=== PATIENT | male | born 1990 | race Caucasian/White ===

== ENCOUNTER 2023-11-12 11:32 | Outpatient (REF) | payer MEDICARE, MEDICAID, SELFPAY ==
[2023-11-12 14:55] LABS: MANUAL DIFF FLAG NO
[2023-11-12 15:10] LABS: Basophils Percent Auto 0.6 % (0-2); Eosinophils Absolute Auto 0.1 X10*3/uL (0.0-0.4); Eosinophils Percent Auto 0.8 % (0-4); Hematocrit 42.2 % (42.0-52.0); Hemoglobin 14.3 g/dl (14.0-18.0); Imm Gran Abs Auto 0.03 X10*3/uL (0.00-0.03); Imm Gran Pct Auto 0.5 % (0.0-0.4); Lymphocytes Absolute Auto 1.6 X10*3/uL (1.2-4.9); Lymphocytes Percent Auto 23.7 % (20-40); Mean Corpuscular HGB Conc 33.9 g/dl (31.0-36.0); Mean Corpuscular Hemoglobin 29.7 pg (27.0-33.0); Mean Corpuscular Volume 87.6 fL (80.0-98.0); Monocytes Absolute Auto 0.6 X10*3/uL (0.1-1.2); Monocytes Percent Auto 8.3 % (2-11); Neutrophils Absolute Auto 4.4 x10*3/uL (2.0-8.3); Neutrophils Percent Auto 66.1 % (45-73); Platelet Count 218 X10*3/uL (160-400); Red Blood Count 4.82 X10*6/uL (4.60-5.80); Red Cell Distribution Width 12.7 % (11.0-16.0); White Blood Count 6.6 X10*3/uL (4.8-10.8)
[2023-11-12 15:28] LABS: Alanine Aminotransferase 38 U/L (0-40); Alkaline Phosphatase 72 U/L (39-117); Anion Gap 12 (12-20); Aspartate Amino Transferase 21 U/L (5-37); Bilirubin Total 0.4 mg/dL (0.0-1.0); Blood Urea Nitrogen 9 mg/dL (9-16); Calcium 8.9 mg/dL (8.4-10.2); Carbon Dioxide 26 mmol/L (22-29); Chloride 103 mmol/L (96-108); Estimated Glomerular Filt Rate > 60; Glucose Fasting 93 mg/dL (60-99); Potassium 3.6 mmol/L (3.3-5.1); Sodium 137 mmol/L (135-145); Total Protein 7.4 g/dL (6.5-8.0)
[2023-11-13 08:25] LABS: HIV AB/AG Nonreactive (Nonreactive); HIV Num 1 0.07 S/CO (0.00-0.99); ~HepC Num1 0.24 S/CO (0.00-0.79); ~Hepatitis C Antibody Nonreactive (Nonreactive)
== END 2023-11-12 11:33 | disposition home or self-care (01) ==
LOC: HO.CHCLDS 11:32
PROVIDERS: Visit Provider Internal Medicine
DX: Z00.00 Encounter for general adult medical examination without abnormal findings (principal); Z11.4 Encounter for screening for human immunodeficiency virus [HIV]; L83 Acanthosis nigricans; R63.5 Abnormal weight gain
CPT/HCPCS: 36415; 80053; 84443; 85025; 86803; 87389

== ENCOUNTER 2024-12-09 11:34 | Outpatient (REF) | payer MEDICARE, MEDICAID, SELFPAY ==
--- OUTSIDE RECORDS SUMMARY | 2024-12-09 12:55 | XMS_ITS | Encounter Summary ---
Author Organization [employer] Address [address] [place] [id number] Care Team Providers Care Pipe Roller Name Role Phone Ethan Bran MD Primary Care Provider [phone]- [phone] Reason for Visit * Reason Comments Med Refill Encounter Details Date Type Department Care Team ([facility] st Contact Info) Description 04/16/2023 Refill [facility] MED & PEDS [address] [place] [address] Ethan Bran MD [address] [place] [address] Primary insomnia Social History Tobacco Use Types Packs/Day Years Used Date Smoking Tobacco: Never Passive Smoke Exposure: Never Smokeless Tobacco: Never Depression Answer Date Recorded Patient Health Questionnaire-2 Score 0 10/07/2022 Sex and Gender Information Value Date Recorded Sex Assigned at Male 08/19/2022 10:21 AM EDT Legal Sex Male 10:21 AM EDT Gender Identity Male 09/24/2022 9:55 AM EST Sexual Orientation Straight 11/18/2022 9: 39 AM EST documented as of this encounter Plan of Treatment Not on file documented as of this encounter Visit Diagnoses Diagnosis Primary insomnia Persistent disorder of initiating or maintaining sleep documented in this encounter Care Teams Pipe Roller Relationship Specialty Start Date End Date Ethan Bran MD [address] [place] [address] PCP - General Internal Medicine 08/20/12 documented as of this encounter
--- OUTSIDE RECORDS SUMMARY | 2024-12-09 12:55 | XMS_ITS | Encounter Summary ---
Author Organization [employer] Address [address] [facility] 7 [place] [address] Care Team Providers Care Pyroglazer Name Role Phone Ethan Bran MD Primary Care Provider [phone]- [phone] Encounter Details Date Type Department Care Team ([facility] Contact Info) Description 12/09/2024 10:45 AM EST Office Visit [facility] CH[facility] MED & PEDS [address] [place], [place] [phone] Ethan Bran MD [address] [place], [place] [phone] Obesity (BMI 30-39.9) (Primary Dx); Annual physical exam; Autistic disorder; Primary insomnia; Encounter for immunization Social History Tobacco Use Types Packs/Day Years Used Date Smoking Tobacco: Never Passive Smoke Exposure: Never Smokeless Tobacco: Never Depression Answer Date Recorded Patient Health Questionnaire-9 Score 0 12/09/2024 Patient Health Questionnaire-9 Score 0 12/09/2024 Last PHQ-9: Questionnaire Data Not on file 0 12/09/2024 Housing Stability Answer Date Recorded What is your housing situation today? I have leland dumont 12/09/[address] you li ve. Do you have problems with any of the following? None of the above 12/09/2024 Food Insecurity Answer Date Recorded Within the past 12 months, y ou worried that your food would run out before you got money to buy more: Never True 12/09/2024 Within the past 12 months,th e food you bought just didn't last and you didn't have enough money to get more: Never True Transportation Answer Date Recorded In the past 12 months, has l ack of transportation kept you from medical appts, meetings, work or from getting things needed for daily living? I am not sure 12/09/2024 Utilities Answer Date Recorded In the past 12 months, has t he electric, gas, oil or water company threatened to shut off services in your home? No 12/09/2024 Depression Answer Date Recorded Patient Health Questionnaire-2 Score 0 12/09/2024 Internet Access Answer Date Recorded Internet Access Q1 Yes 12/09/2024 Internet Access Q2 Not on file 12/09/2024 Sex and Gender Information Value Date Recorded Sex Assigned at Male 08/19/2022 10:21 AM EDT Legal Sex Male 10:21 AM EDT Gender Identity Male 09/24/2022 9:55 AM EST Sexual Orientation Straight 11/18/2022 9: 39 AM EST documented as of this encounter Last Filed Vital Signs Vital Sign Reading Time Taken Comments Blood Pressure 114/76 12/09/2024 10:56 AM EST Pulse 75 12/09/2024 10:56 AM EST Temperature 36.5 ??C (97.7 ??F) 12/09/2024 10:[address] Respiratory Rate 20 12/09/2024 10:56 AM EST Oxygen Saturation 98% 12/09/2024 10:56 AM EST Inhaled Oxygen Concentration - - Weight 104 kg (230 lb) 12/09/2024 10:56 AM EST Height 172.7 cm (5' 8 ) 12/09/2024 10:56 AM EST Body Mass Index 34.97 12/09/2024 10:56 AM EST documented in this encounter Plan of Treatment Scheduled Orders Name Type Priority Associated Diagnoses Orde r Schedule CBC auto differential Lab Routine Autistic disorder Primary insomnia Obesity (BMI 30-39.9) Expected: 12/09/2024 (Approximate), Expires: 12/09/2025 Lipid Panel, Standard Lab Routine Autistic disorder Primary insomnia Obesity (BMI 30-39.9) Expected: 12/09/2024 (Approximate), Expires: 12/09/2025 Comprehensive Metabolic Panel Lab Routine Autistic disorder Primary insomnia Expected: 12/09/2024 (Approximate), Expires: 12/09/2025 documented as of this encounter Visit Diagnoses Diagnosis Obesity (BMI 30-39.9)- Primary Annual physical exam Routine general medical examination at a health care facility Autistic disorder Autistic disorder, current or active state Primary insomnia Persistent disorder of initiating or maintaining sleep Encounter for immunization documented in this encounter Additional Health Concerns Assessment Noted Time PHQ-9 Depression Total Score: 0 12/09/19 25 11:34 AM EST documented as of this encounter Care Teams Pyroglazer Relationship Specialty Start Date End Date Ethan Bran MD [address] [place] [phone] PCP - General Internal Medicine 08/20/12 documented as of this encounter
--- OUTSIDE RECORDS SUMMARY | 2024-12-09 12:55 | XMS_ITS | Clinical Summary ---
Author Organization [employer] Address [address] [place] [address] 7 [place] [address] Care Team Providers Care Installation Service Representative Name Role Phone Ethan Bran MD Primary Care Provider [phone]- [phone] Allergies No known active allergies Medications cloNIDine (Catapres) 0.3 MG tabletIndicati ons:Autistic disorder TAKE 1 TABLET(0.3 MG) BY MOUTH EVERY DAY AT BEDTIME 30 tablet 11 12/09/19 25 Active mirtazapine (Remeron) 7.5 MG tabletIndicati ons:Primary insomnia TAKE 1 TABLET BY MOUTH EVERY DAY AT BEDTIME 30 tablet 5 12/09/19 25 Active cloNIDine (Catapres) 0.3 MG tabletIndicati ons:Autistic disorder TAKE 1 TABLET(0.3 MG) BY MOUTH EVERY DAY AT BEDTIME 30 tablet 11 02/11/20 24 025 Discontinued(Re order (will not trigger notification to Pharmacy)) mirtazapine (Remeron) 7.5 MG tabletIndicati ons:Primary insomnia TAKE 1 TABLET BY MOUTH EVERY DAY AT BEDTIME 30 tablet 5 04/16/20 24 025 Discontinued(Re order (will not trigger notification to Pharmacy)) Active Problems Problem Noted Date Diagnosed Date Tinea corporis 04/03/2018 Autistic disorder 08/20/2012 Encounters Date Type Department Care Team Description 12/09/2024 10:45 AM EST Office Visit [facility] MED & PEDS [address] [place] [address] Ethan Bran MD Obesity (BMI 30-39.9) (Primary Dx); Annual physical exam; Autistic disorder; Primary insomnia; Encounter for immunization 12/09/2024 Travel 10/18/2024 Travel from Last 3 Months Immunizations Name Administration Dates Next Due Hep B, adult 12/15/2023,11/12/2023 Tdap 01/22/2016 Family History Medical History Relation Name Comments Coronary artery disease Mother Diabetes type II Mother Osteoarthritis Mother Relation Name Status Comments Mother Social History Tobacco Use Types Packs/Day Years Used Date Smoking Tobacco: Never Passive Smoke Exposure: Never Smokeless Tobacco: Never Tobacco Cessation:Counseling Given: Not Answered Depression Answer Date Recorded Patient Health Questionnaire-9 [...] Orientation Straight 11/18/2022 9: 39 AM EST Last Filed Vital Signs Vital Sign Reading [...] Mass Index 34.97 12/09/2024 10:56 AM EST Plan of Treatment Health Maintenance Due Date Last Done Comments Family Planning (PISQ) 2006 Hepatitis B Vaccines (3 of 3 - 19+ 3-dose series) 05/12/2024 12/15/2023, 11/12/2023 Influenza Vaccine (#1) 2025 Postp oned from 06/20/2024 (Patient Refused) Alcohol/Substance Use Screening 12/09/2025 12/09/2024 COVID-19 Vaccine (3 - 2023-2 5 season) 2025 04/08/2021, 03/18/2021 Postponed from 06/20/2024 (Patient Refused) Depression Screening 12/09/2025 12/09/2024, 12/09/2024 SDOH Screening 12/09/2025 12/09/2024 Tobacco Screening 12/09/2025 12/09/2024 DTaP/Tdap/Td Vaccines (2 - T d or Tdap) 01/21/2026 01/22/2016 Lipid Panel 10/09/2027 10/09/2022 Zoster Vaccines (1 of 2) 2041 RSV Patients and Patients Aged 60 years or older (1 - 1-dose 75+ series) 2066 HIV Screening Completed 11/12/2023 Hepatitis C Screening Completed 11/12/2023 HIB Vaccines Aged Out No longer eligi ble based on patient's age to complete this topic HPV Vaccines Aged Out No longer eligi ble based on patient's age to complete this topic Hepatitis A Vaccines Aged Out No long er eligible based on patient's age to complete this topic IPV Vaccines Aged Out No longer eligi ble based on patient's age to complete this topic Meningococcal Vaccine Aged Out No tatyana isabella eligible based on patient's age to complete this topic Pneumococcal Vaccine: Pediatrics (0 to 5 Years) and At-Risk Patients (6 to 49) Years) Aged Out No longer eligible b ased on patient's age to complete this topic RSV under 20 months Aged Out No longe r eligible based on patient's age to complete this topic Rotavirus Vaccines Aged Out No longer eligible based on patient's age to complete this topic Procedures Procedure Name Priority Date/Time Associated Diagnosis Comments HEPATITIS C ANTIBODY Routine 11/12/2023 11:43 AM EST Annual physical exam HIV 1/2 ANTIGEN/ANTIBODY, FOURTH GENERATION W/RFL Routine 11/12/2023 11:43 AM EST Annual physical exam LIPID PANEL, STANDARD Routine 10/09/2022 9:32 AM EST Weight gain from Last 3 Months or Most Recently Relevant to Health Maintenance Results * Hepatitis C Ab (11/12/2023 11:43 AM EST) Hepatitis C Antibody Nonreactive Nonreactive [facility] Comment:Antibodies to HCV no t detected; does not exclude early acuteHCV infection. Blood Venous blood specimen / Unknown 11/12/2023 11:43 AM EST 11/12/2023 2:55 PM EST Ethan Bran MD LAB BLOOD ORDERABLES Final Result [facility] [address] [place] [phone] * HIV-1/2 Antigen and Antibodies, Fourth Generation, with Reflexes (11/12/2023 11:43 AM EST) HIV AB/AG Nonreactive Nonreactive [facility] Comment:HIV-1 p24 Ag and/or HIV-1/HIV-2 Ab not detected.A test result that is nonreactive does not exclude thepossibility of exposure to or infection with HIV-1 and/orHIV-2. Nonreactive results in this assay for individualswith prior exposure to HIV-1 and/or HIV-2 may be due toantigen and antibody levels that are below the limit ofdetection of this assay.The [employer] HIV Ag/Ab Combo assay result andsupplemental assay results should be interpreted inconjunction with the patient's clinical presentation,history and other laboratory results. If the results areinconsistent with clinical evidence, additional testing issuggested to confirm the result. Blood Venous blood specimen / Unknown 11/12/2023 11:43 AM EST 11/12/2023 2:55 PM EST us Ethan Bran MD LAB BLOOD ORDERABLES Final Result [facility] [address] [place] [phone] * (ABNORMAL) Lipid Panel, Standard (10/09/2022 9:32 AM EST) [facility] Cholesterol, Total 152 <200 mg/dL [facility] [place] [employer] HDL Cholesterol 29(L) > OR = 40 mg/dL [facility] [place] [employer] Triglycerides 99 <150 mg/dL [facility] [place] [employer] LDL Cholesterol 104(H) mg/dL (calc) [facility] [place] [employer] Comment: Reference range: <100 Desirable range <100 mg/dL for primary prevention; ?? <70 mg/dL for patients with CHD or diabetic patients with > or = 2 CHD risk factors. LDL-C is now calculated using the Gio-Toby calculation, which is a validated novel method providing better accuracy than the Friedewald equation in the estimation of LDL-C. Gio SS et al. GAGE. 2013;310(19): 1254-3008 (http://education.Brammo.Mogujie/faq/WHP066) Chol/HDLC Ratio 5.2(H) <5.0 (calc) [facility] [place] [employer] Non-HDL Cholesterol 123 <130 mg/dL (calc) [facility] [place] [employer] Comment: For patients with diabetes plus 1 major ASCVD risk factor, treating to a non-HDL-C goal of <100 mg/dL (LDL-C of <70 mg/dL) is considered a therapeutic option. Blood Venous blood specimen / Unknown 10/09/2022 9:32 AM EST 10/09/2022 9:33 AM EST Narrative [facility] - 10/10/2022 6:06 AM EST FASTING:YES FASTING: YES us Ethan Bran MD LAB BLOOD ORDERABLES Final Result [facility] [address] [facility], [place] [address] [facility] [address] [facility], ([address]) [place] [address] from Last 3 Months or Most Recently Relevant to Health Maintenance Insurance [facility] [employer] [place] [address] [place] [phone] Care Teams Installation Service Representative Relationship Specialty Start Date End Date Ethan Bran MD [address] [place] [phone] PCP - General Internal Medicine 08/20/12
--- OUTSIDE RECORDS SUMMARY | 2024-12-09 12:55 | XMS_ITS | Encounter Summary ---
Author Organization [employer] Address [address] [facility] [facility] [address] [place] [address] Care Team Providers Care Store Consultant Name Role Phone Ethan Bran MD Primary Care Provider [phone] Encounter Details Date Type Department Care Team (Latest Contact Info) Description 12/09/2024 Travel Social History Tobacco Use Types Packs/Day Years [...] documented as of this encounter Visit Diagnoses Not on filedocumented in this encounter Additional Health Concerns Assessment Noted Time PHQ-9 Depression Total Score: 0 12/09/19 25 11:34 AM EST documented as of this encounter Care Teams Store Consultant Relationship Specialty Start Date End Date Ethan Bran MD [address] [place] [id number] PCP - General Internal Medicine 08/20/12 documented as of this encounter
[2024-12-09 14:12] LABS: MANUAL DIFF FLAG NO
[2024-12-09 14:18] LABS: Basophils Absolute Auto 0.1 X10*3/uL (0.0-0.2); Basophils Percent Auto 0.9 % (0-2); Eosinophils Absolute Auto 0.1 X10*3/uL (0.0-0.4); Eosinophils Percent Auto 0.6 % (0-4); Hematocrit 43.7 % (42.0-52.0); Hemoglobin 14.8 g/dl (14.0-18.0); Imm Gran Abs Auto 0.03 X10*3/uL (0.00-0.03); Imm Gran Pct Auto 0.4 % (0.0-0.4); Lymphocytes Absolute Auto 1.8 X10*3/uL (1.2-4.9); Lymphocytes Percent Auto 23.6 % (20-40); Mean Corpuscular HGB Conc 33.9 g/dl (31.0-36.0); Mean Corpuscular Hemoglobin 29.7 pg (27.0-33.0); Mean Corpuscular Volume 87.8 fL (80.0-98.0); Mean Platelet Volume 10.4 fL (9.4-12.4); Monocytes Absolute Auto 0.7 X10*3/uL (0.1-1.2); Monocytes Percent Auto 8.6 % (2-11); Neutrophils Absolute Auto 5.1 x10*3/uL (2.0-8.3); Neutrophils Percent Auto 65.9 % (45-73); Platelet Count 235 X10*3/uL (160-400); Red Blood Count 4.98 X10*6/uL (4.60-5.80); Red Cell Distribution Width 12.5 % (11.0-16.0); White Blood Count 7.8 X10*3/uL (4.8-10.8)
[2024-12-09 14:31] LABS: Alanine Aminotransferase 62 U/L (0-40); Alkaline Phosphatase 83 U/L (39-117); Anion Gap 11 (12-20); Aspartate Amino Transferase 38 U/L (5-37); Bilirubin Total 0.6 mg/dL (0.0-1.0); Blood Urea Nitrogen 13 mg/dL (9-16); Calcium 8.9 mg/dL (8.4-10.2); Carbon Dioxide 26 mmol/L (22-29); Chloride 104 mmol/L (96-108); Cholesterol 193 mg/dL (<200); Estimated Glomerular Filt Rate > 60; Glucose Random 92 mg/dL (60-115); HDL Cholesterol 32 mg/dL (>40); LDL Cholesterol Calculated 128 mg/dL (<100); Potassium 3.5 mmol/L (3.3-5.1); Sodium 137 mmol/L (135-145); Triglycerides 167 mg/dL (<150)
== END 2024-12-09 11:35 | disposition home or self-care (01) ==
LOC: HO.CHCLDS 11:34
PROVIDERS: Visit Provider Internal Medicine
DX: E66.9 Obesity, unspecified (principal); F84.0 Autistic disorder; F51.01 Primary insomnia
CPT/HCPCS: 36415; 80053; 80061; 85025

== ENCOUNTER 2025-06-13 10:51 | Outpatient (REF) | payer MEDICARE, MEDICAID, SELFPAY ==
--- OUTSIDE RECORDS SUMMARY | 2025-06-13 12:06 | XMS_ITS | Encounter Summary ---
Author Organization [employer] Address [address] [place] [address] Care Team Providers Care Lifts And Cranes Inspector Name Role Phone Ethan Bran MD Primary Care Provider [phone] Reason for Visit * Reason Comments Med Refill Encounter Details Date Type Department Care Team ([facility] st Contact Info) Description 04/16/2023 Refill [facility] MED & PEDS [address] [place] [address] Ethan Bran MD [address] [place] [address] Primary insomnia Social History Tobacco Use Types [...] sleep documented in this encounter Care Teams Lifts And Cranes Inspector Relationship Specialty Start Date End Date Ethan Bran MD [address] [place] [address] PCP - General Internal Medicine 08/20/12 documented as of this encounter
[2025-06-13 14:47] LABS: Alanine Aminotransferase 53 U/L (0-40); Albumin Level 4.2 g/dL (3.5-5.0); Alkaline Phosphatase 85 U/L (39-117); Anion Gap 11 (12-20); Aspartate Amino Transferase 37 U/L (5-37); Blood Urea Nitrogen 13 mg/dL (9-16); Calcium 8.8 mg/dL (8.4-10.2); Carbon Dioxide 28 mmol/L (22-29); Chloride 103 mmol/L (96-108); Cholesterol 205 mg/dL (<200); Estimated Glomerular Filt Rate > 60; HDL Cholesterol 30 mg/dL (>40); Iron 71 mcg/dL (45-160); Percent Iron Saturation 23 % (15-50); Potassium 3.8 mmol/L (3.3-5.1); Sodium 138 mmol/L (135-145); Total Iron Binding Capacity 311 mcg/dL (228-428); Total Protein 7.5 g/dL (6.5-8.0); Triglycerides 152 mg/dL (<150); Unsaturated Iron Binding 240 ug/dL
[2025-06-13 15:05] LABS: Ferritin 224 ng/mL (20-250)
== END 2025-06-13 10:52 | disposition home or self-care (01) ==
LOC: HO.CHCLDS 10:51
PROVIDERS: Visit Provider Internal Medicine
DX: R74.01 Elevation of levels of liver transaminase levels (principal); E78.1 Pure hyperglyceridemia
CPT/HCPCS: 36415; 80053; 80061; 82728; 82784; 83540

== ENCOUNTER 2025-08-05 10:05 | Outpatient (REF) | payer MEDICARE, MEDICAID, SELFPAY ==
--- NOTE | ~2025-08-05 | US_ITS ---
EXAMINATION: US ABDOMEN COMPLETE WITH LIVER ELASTOGRAPHY HISTORY: transaminitis TECHNIQUE: Real-time grayscale ultrasound imaging of the abdomen was performed and images were reviewed. COMPARISON: There are no prior studies available for comparison. FINDINGS: Liver: The right lobe of the liver measures 13.1 cm in size. The left lobe of the liver measures 9.6 cm in size. The liver demonstrates increased echotexture, consistent with steatosis. No focal mass or intrahepatic biliary ductal dilatation is identified. There is normal hepatopedal flow in the portal vein. Ultrasound elastography of the liver was performed with 10 separate measurements of the liver parenchyma with the patient in the supine position. Measurements were obtained approximately 2 cm below Anca's capsule and perpendicular to the capsule. The median shear wave velocity is 1.40 m/s. The interquartile range/median (IQR/median) is 0.21. Gallbladder and biliary tree: The gallbladder is unremarkable, without evidence of calculi, wall thickening, or pericholecystic fluid. There is no sonographic Vergara sign. The common bile duct is normal in caliber measuring 3 mm. Kidneys: The right kidney measures 11.5 cm in length. The left kidney measures 11.5 cm in length. The kidneys are unremarkable, without evidence of masses, hydronephrosis, or calculi. Pancreas: The pancreatic head, neck, and body are unremarkable. The pancreatic tail is obscured by bowel gas. Spleen: The spleen is normal in size and contour, measuring 10.8 cm in length. Abdominal aorta and inferior vena cava: The visualized portions of the abdominal aorta and inferior vena cava are normal in caliber. There is no free fluid in the abdomen. US/US abdomen comp w elastography IMPRESSION: Hepatic steatosis. The median shear wave velocity in the liver is 1.40 m/s, corresponding to a median liver stiffness of 5.99 kPa. The IQR/median value is 0.21. This is indicative of a poor quality data set, and the estimated liver stiffness may be unreliable. Findings are indicative of a low elastography value which rules out advanced chronic liver disease in asymptomatic patients. REFERENCE: Society of [employer] in Ultrasound Liver Stiffness Thresholds (2020): LIVER STIFFNESS THRESHOLDS: *Shear wave velocity less than 1.3 m/s (Liver Stiffness equal or less than 5 kPa): High probability of being normal. *Shear wave velocity less than 1.7 m/s (Liver Stiffness less than 9 kPa): In the absence of other known clinical signs, rules out compensated advanced chronic liver disease. *Shear wave velocity between 1.7-2.1 m/s (Liver Stiffness 9-13 kPa): Suggestive of compensated advanced chronic liver disease but need further test for confirmation. *Shear wave velocity between 2.1-2.4 m/s (Liver Stiffness 13-17 kPa): Rules in compensated advanced chronic liver disease. *Shear wave velocity greater than 2.4 m/s (Liver Stiffness over 17 kPa): Suggestive of clinically significant portal hypertension. QUALITY OF DATA SET: *IQR/Median value equal or less than 0.15 implies a quality data set. *IQR/Median value over 0.15 implies a poor quality data set. SIGNIFICANT CHANGE FROM PRIOR EXAM: Significant change if liver stiffness measurement is 10% or greater from prior exam. OTHER CONSIDERATIONS: The stage of liver fibrosis may be overestimated in the setting of acute hepatitis, liver inflammation, elevated liver function tests, hepatic vascular congestion, obstructive cholestasis, non-fasting state, and infiltrative diseases such as amyloidosis and lymphoma. In some patients with NAFLD, the liver stiffness thresholds for compensated advanced chronic liver disease may be lower. In causes other than viral hepatitis and NAFLD, liver stiffness thresholds are not well established. Electronically signed by: Vlad Gonzalez MD 08/05/2025 10:54 AM EDT
--- OUTSIDE RECORDS SUMMARY | 2025-08-05 11:46 | XMS_ITS | Encounter Summary ---
Author Organization [employer] Address [address] [place] [address] [address] [place] [address] Care Team Providers Care Director Of Billing Name Role Phone Ethan Bran MD Primary Care Provider [phone]- [phone] Reason for Visit * Reason Comments Med Refill Encounter Details Date Type Department Care Team ([facility] st Contact Info) Description 07/09/2025 Refill [facility] MED & PEDS [address] [place], [place] [phone] Ethan Bran MD [address] [place] [address] Primary insomnia Social History Tobacco Use Types Packs/Day Years Used Date Smoking Tobacco: Never Passive Smoke Exposure: Never Smokeless Tobacco: Never Depression Answer Date Recorded Patient Health Questionnaire-9 Score 0 06/13/2025 Patient Health Questionnaire-9 Score 0 06/13/2025 Last PHQ-9: Questionnaire Data Not on file 0 06/13/2025 Housing Stability Answer Date Recorded What is [...] Date Recorded Patient Health Questionnaire-2 Score 0 06/13/2025 Internet Access Answer Date Recorded Internet Access [...] or maintaining sleep documented in this encounter Additional Health Concerns Assessment Noted Time PHQ-9 Depression Total Score: 0 06/13/20 10:58 AM EDT documented as of this encounter Care Teams Director Of Billing Relationship Specialty Start Date End Date Ethan Bran MD [address] [place] [phone] PCP - General Internal Medicine 08/20/12 documented as of this encounter
--- OUTSIDE RECORDS SUMMARY | 2025-08-05 11:46 | XMS_ITS | Encounter Summary ---
Author Organization [facility] [employer] Address [address] [place] [address] [address] [place] [address] Care Team Providers Care Training Director Name Role Phone Ethan Bran MD Primary Care Provider [phone]- [phone] Reason for Visit * Reason Comments Med Refill Encounter Details Date Type Department Care Team ([facility] st Contact Info) Description 02/17/2025 Refill [facility] CHC MED & PEDS [address] [place], [place] [phone] Ethan Bran MD [address] [place] [address] Primary insomnia Social History Tobacco Use Types [...] documented as of this encounter Care Teams Training Director Relationship Specialty Start Date End Date Ethan Bran MD [address] [place] [address] PCP - General Internal Medicine 08/20/12 documented as of this encounter
--- OUTSIDE RECORDS SUMMARY | 2025-08-05 11:46 | XMS_ITS | Clinical Summary ---
Author Organization [employer] Address [address] [place] [address] [address], [place] [address] Care Team Providers Care Police Investigator Name Role Phone Ethan Bran MD Primary Care Provider [phone]- [phone] Allergies No known active allergies Medications cloNIDine (Catapres) 0.3 MG tabletIndicatio ns:Autistic disorder TAKE 1 TABLET(0.3 MG) BY MOUTH EVERY DAY AT BEDTIME 30 tablet 11 06/13/2025 Active mirtazapine (Remeron) 7.5 MG tabletIndicatio ns:Primary insomnia TAKE 1 TABLET BY MOUTH EVERY DAY AT BEDTIME 30 tablet 5 06/13/2025 Active Active Problems Problem Noted Date Diagnosed Date Transaminitis 06/13/2025 Tinea corporis 04/03/2018 Autistic disorder 08/20/2012 Encounters Date Type Department Care Team Description 07/09/2025 Refill [facility] [address] [place] [address] Ethan Bran MD Primary insomnia 06/14/2025 Results Follow-Up [facility] [address] [place] [address] Jacki Tomlinson RN Comprehensive Metabolic Panel, Lipid Panel, Standard, Ferritin, Iron And Total Iron Binding Capacity 06/13/2025 10:00 AM EDT Office Visit [facility] [address] [place] [address] Ethan Bran MD Autistic disorder (Primary Dx); Acanthosis nigricans; Dietary counseling; Exercise counseling; Class 1 obesity due to excess calories without serious comorbidity with body mass index (BMI) of 34.0 to 34.9 in adult; Transaminitis; Hypertriglyceridemia; Autistic disorder; Primary insomnia 06/13/2025 Travel from Last 3 Months Immunizations Immunization Administration Dates Next Due Hep B, adult 12/09/2024,12/15/2023,11/12/2023 Tdap 01/22/2016 Family History Medical History Relation [...] Sign Reading Time Taken Comments Blood Pressure 126/85 06/13/2025 9:58 AM EDT Pulse 73 06/13/2025 9:58 AM EDT Temperature 36.5 C (97.7 F) 06/13/2025 9:58 AM EDT Respiratory Rate 20 06/13/2025 9:58 AM EDT Oxygen Saturation 98% 06/13/2025 9:58 AM EDT Inhaled Oxygen Concentration - - Weight 102 kg (224 lb) 06/13/2025 9:58 AM EDT Height 172.7 cm (5' 8 ) 06/13/2025 9:58 AM EDT Body Mass Index 34.06 06/13/2025 9:58 AM EDT Plan of Treatment Health Maintenance Due Date Last Done Comments Disability Screening 1990 Family Planning (PISQ) 2006 HPV Vaccines (1 - Male 3-dos e series) 2006 COVID-19 Vaccine (3 - 2024-2 6 season) 2025 04/08/2021, 03/18/2021 Influenza Vaccine (#1) 2025 Alcohol/Substance Use Screening 12/09/2025 12/09/2024 SDOH Screening 12/09/2025 12/09/2024 DTaP/Tdap/Td Vaccines (2 - T d or Tdap) 01/21/2026 01/22/2016 Depression Screening 06/13/2026 06/13/2025, 06/13/2025 Tobacco Screening 06/13/2026 06/13/2025 Lipid Panel 06/13/2030 06/13/2025, 12/09/2024, 10/09/2022 Zoster Vaccines (1 of 2) 2041 RSV Patients and Patients Aged 60 years or older (1 - 1-dose 75+ series) 2066 HIV Screening Completed 11/12/2023 Hepatitis C Screening Completed 11/12/2023 Hepatitis B Vaccines Completed 12/09/2024, 12/15/2023, 11/12/2023 HIB Vaccines Aged Out No longer eligi ble based on patient's age to complete this topic Hepatitis A Vaccines Aged Out No long er eligible based on patient's age to complete this topic IPV Vaccines Aged Out No longer eligi ble based on patient's age to complete this topic Meningococcal B Vaccine Aged Out No l onger eligible based on patient's age to complete this topic Meningococcal Vaccine Aged Out No tatyana isabella eligible based on patient's age to complete this topic Pneumococcal Vaccine: Pediatrics (0 to 5 Years) and At-Risk Patients (6 to 49) Years Aged Out No longer eligible b ased on patient's age to complete this topic RSV under 20 months Aged Out No longe r eligible based on patient's age to complete this topic Rotavirus Vaccines Aged Out No longer eligible based on patient's age to complete this topic Procedures Procedure Name Priority Date/Time Associated Diagnosis Comments US ABDOMEN COMPLETE WITH ELASTOGRAPHY Routine 08/05/2025 10:30 AM EDT Transaminitis IRON AND TOTAL IRON BINDING CAPACITY Routine 06/13/2025 10:53 AM EDT Transaminitis FERRITIN Routine 06/13/2025 10:53 AM EDT Transaminitis IMMUNOGLOBULINS, QUANTITATIVE, IGA, IGG, IGM Routine 06/13/2025 10:53 AM EDT Transaminitis LIPID PANEL, STANDARD Routine 06/13/2025 10:53 AM EDT Transaminitis Hypertriglyceridem ia COMPREHENSIVE METABOLIC PANEL Routine 06/13/2025 10:53 AM EDT Transaminitis HEPATITIS C ANTIBODY Routine 11/12/2023 11:43 AM EST Annual physical exam HIV 1/2 ANTIGEN/ANTIBODY, FOURTH GENERATION W/RFL Routine 11/12/2023 11:43 AM EST Annual physical exam from Last 3 Months or Most Recently Relevant to Health Maintenance Results * US Abdomen Comp w elastography (08/05/2025 10:30 AM EDT) Anatomical Region Laterality Modality Abdomen Ultrasound 08/05/2025 10:3 0 AM EDT Narrative 08/05/2025 10:57 AM EDT [address] [address] Ultrasound Report Signed Patient: Jayro Medina MR# : [id number] : 1990 Acct:[id number] Age/Sex: 34 / M ADM Date: 08/05/25 Loc: HO.US Attending Dr: Ethan Bran MD Ordering Physician: Ethan Bran MD Date of Service: 08/05/25 Procedure(s): US abdomen comp w elastography Accession Number(s): [id number] cc: Ethan Bran MD Reason for Exam: transaminitis EXAMINATION: US ABDOMEN COMPLETE WITH LIVER ELASTOGRAPHY HISTORY: transaminitis TECHNIQUE: Real-time grayscale ultrasound imaging of the abdomen was performed and images were reviewed. COMPARISON: There are no prior studies available for comparison. FINDINGS: Liver: The right lobe of the liver measures 13.1 cm in size. The left lobe of the liver measures 9.6 cm in size. The liver demonstrates increased echotexture, consistent with steatosis. No focal mass or intrahepatic biliary ductal dilatation is identified. There is normal hepatopedal flow in the portal vein. Ultrasound elastography of the liver was performed with 10 separate measurements of the liver parenchyma with the patient in the supine position. Measurements were obtained approximately 2 cm below Anca's capsule and perpendicular to the capsule. The median shear wave velocity is 1.40 m/s. The interquartile range/median (IQR/median) is 0.21. Gallbladder and biliary tree: The gallbladder is unremarkable, without evidence of calculi, wall thickening, or pericholecystic fluid. There is no sonographic Vergara sign. The common bile duct is normal in caliber measuring 3 mm. Kidneys: The right kidney measures 11.5 cm in length. The left kidney measures 11.5 cm in length. The kidneys are unremarkable, without evidence of masses, hydronephrosis, or calculi. Pancreas: The pancreatic head, neck, and body are unremarkable. The pancreatic tail is obscured by bowel gas. Spleen: The spleen is normal in size and contour, measuring 10.8 cm in length. Abdominal aorta and inferior vena cava: The visualized portions of the abdominal aorta and inferior vena cava are normal in caliber. There is no free fluid in the abdomen. US/US abdomen comp w elastography IMPRESSION: Hepatic steatosis. The median shear wave velocity in the liver is 1.40 m/s, corresponding to a median liver stiffness of 5.99 kPa. The IQR/median value is 0.21. This is indicative of a poor quality data set, and the estimated liver stiffness may be unreliable. Findings are indicative of a low elastography value which rules out advanced chronic liver disease in asymptomatic patients. REFERENCE: Society of [employer] in Ultrasound Liver Stiffness Thresholds (2020): LIVER STIFFNESS THRESHOLDS: *Shear wave velocity less than 1.3 m/s (Liver Stiffness equal or less than 5 kPa): High probability of being normal. *Shear wave velocity less than 1.7 m/s (Liver Stiffness less than 9 kPa): In the absence of other known clinical signs, rules out compensated advanced chronic liver disease. *Shear wave velocity between 1.7-2.1 m/s (Liver Stiffness 9-13 kPa): Suggestive of compensated advanced chronic liver disease but need further test for confirmation. *Shear wave velocity between 2.1-2.4 m/s (Liver Stiffness 13-17 kPa): Rules in compensated advanced chronic liver disease. *Shear wave velocity greater than 2.4 m/s (Liver Stiffness over 17 kPa): Suggestive of clinically significant portal hypertension. QUALITY OF DATA SET: *IQR/Median value equal or less than 0.15 implies a quality data set. *IQR/Median value over 0.15 implies a poor quality data set. SIGNIFICANT CHANGE FROM PRIOR EXAM: Significant change if liver stiffness measurement is 10% or greater from prior exam. OTHER CONSIDERATIONS: The stage of liver fibrosis may be overestimated in the setting of acute hepatitis, liver inflammation, elevated liver function tests, hepatic vascular congestion, obstructive cholestasis, non-fasting state, and infiltrative diseases such as amyloidosis and lymphoma. In some patients with NAFLD, the liver stiffness thresholds for compensated advanced chronic liver disease may be lower. In causes other than viral hepatitis and NAFLD, liver stiffness thresholds are not well established. Electronically signed by: Vlad Gonzalez MD 08/05/2025 10:54 AM EDT Dictated By: Vlad Gonzalez MD Signed By: <Electronically signed by Vlad Gonzalez MD in OV> 08/05/25 1054 DD/ 1030 TD/TT: 08/05/25 1045 Manufacturing Recruiter: Procedure Note Donotuseinterpreter, Image - 08/05/[address] [address] Ultrasound Report Signed Patient: Reyes Medina# : [id number] : 1990Acct:[id number] Age/Sex: 34 / MADM Date: 08/05/25 Loc: HO.US Attending Dr: Ethan Bran MD Ordering Physician: Ethan Bran MD Date of Service: 08/05/25 Procedure(s): US abdomen comp w elastography Accession Number(s): [id number] cc: Ethan Bran MD Reason for Exam: transaminitis EXAMINATION: US ABDOMEN COMPLETE WITH LIVER ELASTOGRAPHY HISTORY: transaminitis TECHNIQUE: Real-time grayscale ultrasound imaging of the abdomen was performed and images were reviewed. COMPARISON: There are no prior studies available for comparison. FINDINGS: Liver: The right lobe of the liver measures 13.1 cm in size. The left lobe of the liver measures 9.6 cm in size. The liver demonstrates increased echotexture, consistent with steatosis. No focal mass or intrahepatic biliary ductal dilatation is identified. There is normal hepatopedal flow in the portal vein. Ultrasound elastography of the liver was performed with 10 separate measurements of the liver parenchyma with the patient in the supine position. Measurements were obtained approximately 2 cm below Anca's capsule and perpendicular to the capsule. The median shear wave velocity is 1.40 m/s. The interquartile range/median (IQR/median) is 0.21. Gallbladder and biliary tree: The gallbladder is unremarkable, without evidence of calculi, wall thickening, or pericholecystic fluid. There is no sonographic Vergara sign. The common bile duct is normal in caliber measuring 3 mm. Kidneys: The right kidney measures 11.5 cm in length. The left kidney measures 11.5 cm in length. The kidneys are unremarkable, without evidence of masses, hydronephrosis, or calculi. Pancreas: The pancreatic head, neck, and body are unremarkable. The pancreatic tail is obscured by bowel gas. Spleen: The spleen is normal in size and contour, measuring 10.8 cm in length. Abdominal aorta and inferior vena cava: The visualized portions of the abdominal aorta and inferior vena cava are normal in caliber. There is no free fluid in the abdomen. US/US abdomen comp w elastography IMPRESSION: Hepatic steatosis. The median shear wave velocity in the liver is 1.40 m/s, corresponding to a median liver stiffness of 5.99 kPa. The IQR/median value is 0.21. This is indicative of a poor quality data set, and the estimated liver stiffness may be unreliable. Findings are indicative of a low elastography value which rules out advanced chronic liver disease in asymptomatic patients. REFERENCE: Society of [employer] in Ultrasound Liver Stiffness Thresholds (2020): LIVER STIFFNESS THRESHOLDS: *Shear wave velocity less than 1.3 m/s (Liver Stiffness equal or less than 5 kPa): High probability of being normal. *Shear wave velocity less than 1.7 m/s (Liver Stiffness less than 9 kPa): In the absence of other known clinical signs, rules out compensated advanced chronic liver disease. *Shear wave velocity between 1.7-2.1 m/s (Liver Stiffness 9-13 kPa): Suggestive of compensated advanced chronic liver disease but need further test for confirmation. *Shear wave velocity between 2.1-2.4 m/s (Liver Stiffness 13-17 kPa): Rules in compensated advanced chronic liver disease. *Shear wave velocity greater than 2.4 m/s (Liver Stiffness over 17 kPa): Suggestive of clinically significant portal hypertension. QUALITY OF DATA SET: *IQR/Median value equal or less than 0.15 implies a quality data set. *IQR/Median value over 0.15 implies a poor quality data set. SIGNIFICANT CHANGE FROM PRIOR EXAM: Significant change if liver stiffness measurement is 10% or greater from prior exam. OTHER CONSIDERATIONS: The stage of liver fibrosis may be overestimated in the setting of acute hepatitis, liver inflammation, elevated liver function tests, hepatic vascular congestion, obstructive cholestasis, non-fasting state, and infiltrative diseases such as amyloidosis and lymphoma. In some patients with NAFLD, the liver stiffness thresholds for compensated advanced chronic liver disease may be lower. In causes other than viral hepatitis and NAFLD, liver stiffness thresholds are not well established. Electronically signed by: Vlad Gonzalez MD 08/05/2025 10:54 AM EDT Dictated By: Vlad Gonzalez MD Signed By: <Electronically signed by Vlad Gonzalez MD in OV> 08/05/25 1054 DD/ 1030 TD/TT: 08/05/25 1045 Manufacturing Recruiter: Ethan Bran MD IMG US PROCEDURES Final Res ult * Iron And Total Iron Binding Capacity (06/13/2025 10:53 AM EDT) Iron 71 45 - 160 mcg/dL [facility] Total Iron Binding Capacity 311 228 - 428 mcg/dL [facility] Percent Iron Saturation 23 15 - 50 % [facility] Unsaturated Iron Binding 240 ug/dL [facility] Blood Venous blood specimen / Unknown 06/13/2025 10:53 AM EDT 06/13/2025 2:10 PM EDT Ethan Bran MD LAB BLOOD ORDERABLES Final Result Performing Organization Address [facility] Co de Phone Number [facility] [address] [place] [phone] * Immunoglobulins, Quantitative, IgA, IgG, IgM (06/13/2025 10:53 AM EDT) IMMUNOGLOBULIN G 1522 600 - 1640 mg/dL [facility] IMMUNOGLOBULIN A 285 47 - 310 mg/dL [facility] Immunoglobulin M 184 50 - 300 mg/dL [facility] Comment:THIS TEST WAS PERFOR MED AT:[facility] [place] [phone] ROD MD Blood Venous blood specimen / Unknown 06/13/2025 10:53 AM EDT 06/13/2025 2:10 PM EDT Ethan Bran MD LAB BLOOD ORDERABLES Final Result Performing Organization Address [facility]/ZIP Co de Phone Number [facility] [address] [place] [phone] * Ferritin (06/13/2025 10:53 AM EDT) Ferritin 224 20 - 250 ng/mL [facility] Blood Venous blood specimen / Unknown 06/13/2025 10:53 AM EDT 06/13/2025 2:10 PM EDT us Ethan Bran MD LAB BLOOD ORDERABLES Final Result Performing Organization Address City/[facility]/ZIP Co de Phone Number [facility] [address] [place] [phone] * (ABNORMAL) Lipid Panel, Standard (06/13/2025 10:53 AM EDT) Triglycerides 152(H) <150 mg/dL [facility] Comment:Desirable Triglyceri de: less than 150 mg/dLBorderline High Triglyceride 150-199 mg/dLHigh Triglyceride: 200-499 mg/dLVery High Triglyceride: greater than or equal to 5OO mg/dL Cholesterol 205(H) <200 mg/dL [facility] Comment:Desirable Cholestero l: less than 200 mg/dLBorderline High Cholesterol: 200-239 mg/dLHigh Cholesterol: greater than 239 mg/dL LDL Cholesterol Calculated 145(H) <100 mg/dL [facility] Comment:Desirable LDL: less than 100 mg/dLNear Optimal/Above Optimal LDL: 110- 129 mg/dLBorderline High LDL: 130-159 mg/dLHigh LDL: 160-189 mg/dLVery High LDL: greater than or equal to 190 mg/dL HDL Cholesterol 30(L) >40 mg/dL [facility] Comment:Desirable HDL: great er than 40 mg/dL Note: This HDL assay may give artificially low results in patients with liver disease. Blood Venous blood specimen / Unknown 06/13/2025 10:53 AM EDT 06/13/2025 2:10 PM EDT us Ethan Bran MD LAB BLOOD ORDERABLES Final Result [facility] [address] [place] [phone] * (ABNORMAL) Comprehensive Metabolic Panel (06/13/2025 10:53 AM EDT) Sodium 138 135 - 145 mmol/L [facility] Potassium 3.8 3.3 - 5.1 mmol/L [facility] Chloride 103 96 - 108 mmol/L [facility] Carbon Dioxide 28 22 - 29 mmol/L [facility] Anion Gap 11(L) 12 - 20 [facility] Urea Nitrogen (BUN) 13 9 - 16 mg/dL [facility] Creatinine, Serum 1.06 0.5 - 1.4 mg/dL [facility] Estimated Glomerular Filt Rate >60 [facility] Comment:Chronic Kidney Disea se: Estimated GFR < 60 mL/min/[id number] Kidney Disease: Estimated GFR < 15 mL/min/1.73m2 Glucose 104 60 - 115 mg/dL [facility] Calcium 8.8 8.4 - 10.2 mg/dL [facility] Bilirubin, Total 0.5 0.0 - 1.0 mg/dL [facility] Aspartate Amino Transferase 37 5 - 37 U/L [facility] Alanine Aminotransferase 53(H) 0 - 40 U/L [facility] Total Protein 7.5 6.5 - 8.0 g/dL [facility] Albumin Level 4.2 3.5 - 5.0 g/dL [facility] Alkaline Phosphatase 85 39 - 117 U/L [facility] Blood Venous blood specimen / Unknown 06/13/2025 10:53 AM EDT 06/13/2025 2:10 PM EDT us Ethan Bran MD LAB BLOOD ORDERABLES Final Result [facility] [address] [place] [phone] * Hepatitis C Ab (11/12/2023 11:43 AM EST) Hepatitis C Antibody Nonreactive Nonreactive [facility] Comment:Antibodies to HCV no t detected; does not exclude early acuteHCV infection. Blood Venous blood specimen / Unknown 11/12/2023 11:43 AM EST 11/12/2023 2:55 PM EST us Ethan Bran MD LAB BLOOD ORDERABLES Final Result Performing Organization Address [facility] Co de Phone Number [facility] [address] [place] [phone] * HIV-1/2 Antigen and Antibodies, Fourth Generation, with Reflexes (11/12/2023 11:43 AM EST) HIV AB/AG Nonreactive Nonreactive [facility] Comment:HIV-1 p24 Ag and/or HIV-1/HIV-2 Ab not detected.A test result that is nonreactive does not exclude thepossibility of exposure to or infection with HIV-1 and/orHIV-2. Nonreactive results in this assay for individualswith prior exposure to HIV-1 and/or HIV-2 may be due toantigen and antibody levels that are below the limit ofdetection of this assay.The Comprehend Systemsnity HIV Ag/Ab Combo assay result andsupplemental assay results should be interpreted inconjunction with the patient's clinical presentation,history and other laboratory results. If the results areinconsistent with clinical evidence, additional testing issuggested to confirm the result. Blood Venous blood specimen / Unknown 11/12/2023 11:43 AM EST 11/12/2023 2:55 PM EST us Ethan Bran MD LAB BLOOD ORDERABLES Final Result Performing Organization Address [facility] Co de Phone Number [facility] [address] [place] [phone] from Last 3 Months or Most Recently Relevant to Health Maintenance Insurance [employer] [facility] [facility] STANDARD MEDICARE Care Teams Police Investigator Relationship Specialty Start Date End Date Ethan Bran MD [address] [place] [phone] PCP - General Internal Medicine 08/20/12
--- OUTSIDE RECORDS SUMMARY | 2025-08-05 11:46 | XMS_ITS | Encounter Summary ---
Author Organization [employer] Address [address] [place] [address] Care Team Providers Care Baby Registry Sales Consultant Name Role Phone Ethan Bran MD Primary Care Provider [phone]- [phone] Reason for Visit * Reason Comments Med Refill Encounter Details Date Type Department Care Team ([facility] st Contact Info) Description 04/16/2023 Refill [facility] [address] [place] [address] Ethan Bran MD [address] [place] [address] Primary insomnia Social History Tobacco Use Types [...] sleep documented in this encounter Care Teams Baby Registry Sales Consultant Relationship Specialty Start Date End Date Ethan Bran MD [address] [place] [address] PCP - General Internal Medicine 08/20/12 documented as of this encounter
== END 2025-08-05 10:06 | disposition home or self-care (01) ==
LOC: HO.US 10:05
PROVIDERS: PCP Internal Medicine; Visit Provider Internal Medicine
DX: R74.01 Elevation of levels of liver transaminase levels (principal)
CPT/HCPCS: 76700; 76981

== ENCOUNTER → 2025-08-05 10:07 | Outpatient (BNV) | payer MEDICARE, MEDICAID, SELFPAY | PROVIDERS: PCP Internal Medicine; Visit Provider Radiology Diagnostic Radiology | DX: K76.0 Fatty (change of) liver, not elsewhere classified (principal) | CPT/HCPCS: 76700 ==